=== PATIENT | female | born 1950 | race Caucasian/White ===

== ENCOUNTER 2018-03-29 04:16 | Inpatient (IN) | payer OTHER ==
[~2018-03-29] VITALS: Ht 162.6 cm; Wt 51.3 kg
--- NOTE | 2018-03-29 04:24 | NUR ---
PT AMBULATORY TO ER BED 4. BIBSELF FROM HOME C/O N/V X 1 DAY. NOTED LACERATION TO BACK OF HEAD. PT STATES SHE HIT HER HEAD ON THE WALL WHILE VOMITING. PT PLACED ON PRESENTATION DESIGNER. VSS/RESP EVEN UNLABORED/NAD NOTED/SKIN WARM AND DRY/AFEBRILE/AOX4. AWAITNG MD JARQUIN.
--- NOTE | 2018-03-29 04:30 | NUR ---
EMT AT BEDSIDE TO CLEAN LACERATION TO BACK OF HEAD.
[2018-03-29] MEDS ORDERED: TDAP [DIPH/PERTUSSIS/TET] 0.5 ML VIAL IM ONE ×2 (04:40→05:00)
[2018-03-29] MEDS ORDERED: ONDANSETRON HCL/PF 4 MG/2 ML VIAL ONE (04:40)
[2018-03-29] MEDS ORDERED: LIDOCAINE 0.5% HCL 50 ML VIAL ONE (04:40)
--- NOTE | 2018-03-29 04:45 | NUR ---
20G IV TO L FA X 1 ATTEMPT USING ASEPTIC TECH, BLOOD HANDED OVER TO THE LAB AT BEDSIDE. IV FLUSHES EASILY WITH NS, NO S/S INFILTRATION NOTED AT THIS TIME.
--- NOTE | 2018-03-29 04:49 | NUR ---
EMT AT BEDSIDE FOR EKG.
--- NOTE | 2018-03-29 04:51 | NUR ---
XRAY AT BEDSIDE.
--- NOTE | 2018-03-29 04:55 | NUR ---
SUTURE SETUP AT BEDSIDE PER MD ORDERS.
[2018-03-29 04:57] LABS: BASOPHILS % (AUTO) 0.2 % (0.0-2.0); EOSINOPHILS % (AUTO) 1.4 % (0.0-6.0); HEMATOCRIT 42 % (33-45); HEMOGLOBIN 14.1 g/dL (11.5-14.8); LYMPHOCYTES % (AUTO) 25.9 % (20.0-44.0); MEAN CORPUSCULAR HEMOGLOBIN 34 PG (26.0-33.0); MEAN CORPUSCULAR HGB CONC 34 g/dl (31.0-36.0); MEAN CORPUSCULAR VOLUME 99 fL (82-100); MONOCYTES # (AUTO) 0.3 /CMM (0.1-1.30); NEUTROPHILS # (AUTO) 2.5 /CMM (1.8-8.9); NEUTROPHILS % (AUTO) 65.5 % (43.0-81.0); PLATELET COUNT (AUTO) 179 /CMM (150-450); RDW COEFFICIENT OF VARIATION 12.8 (11.5-15.0); WHITE BLOOD COUNT (AUTO) 3.9 K/uL (4.3-11.0)
--- NOTE | 2018-03-29 04:59 | NUR ---
PT TO CT VIA STRETCHER. VSS.
[2018-03-29] MEDS ORDERED: IV NS 0.9% 1,000 ML BAG IV ONE (05:00)
[2018-03-29] MEDS ORDERED: LIDOCAINE HCL/PF 1% 30 ML VIAL TP ONE (05:00)
[2018-03-29] MEDS ORDERED: ONDANSETRON HCL/PF 4 MG/2 ML VIAL IVP ONE (05:00)
[2018-03-29 05:08] LABS: CALCIUM, SERUM 8.3 mg/dL (8.5-10.1); CARBON DIOXIDE 27 mmol/L (21-32); CHLORIDE 103 mmol/L (98-107); CREATININE 0.6 mg/dL (0.6-1.3); GLUCOSE 154 mg/dL (74-106); POTASSIUM 3.3 mmol/L (3.5-5.1); SODIUM SERUM 141 mmol/L (136-145); UREA NITROGEN, BLOOD 8 mg/dL (7-18)
[2018-03-29 05:11] LABS: INR 0.96 (0.87-1.13)
--- NOTE | 2018-03-29 05:11 | NUR ---
PT BACK FROM CT.
[2018-03-29 05:16] LABS: TROPONIN I < 0.017 ng/mL (0.00-0.056)
[2018-03-29] MEDS ORDERED: PRAV10TA40 PO ×2 (05:25)
[2018-03-29] MEDS ORDERED: ASPIRIN 81 MG TAB.CHEW ONE (05:27)
[2018-03-29] MEDS ORDERED: ASPIRIN 325 MG TABLET PO ONE (05:30)
--- NOTE | 2018-03-29 05:31 | NUR ---
CALLED NURSE SAHILP FOR TELE BED
--- NOTE | 2018-03-29 05:40 | NUR ---
REPORT GIVEN TO JENY COLMENARES FOR SHANA.
--- NOTE | 2018-03-29 05:51 | NUR ---
Jones castaneda in ED - 03/29/18 at 0615 by SANDY PT TRANSPORTED TO [place] [address].2 VIA STRETCHER ON BUSINESS SERVICES DIRECTOR WITH RN PER ACLS PROTOCOL.
[2018-03-29] MEDS ORDERED: DILTIAZEM HCL 25 MG IV ONE (05:54)
--- NOTE | 2018-03-29 05:55 | NUR ---
PER ADALI CONCEPCION, ADMIT TO [facility] STATUS. NEW ROOM 117-1
[2018-03-29] MEDS ORDERED: DILTIAZEM HCL 25 MG IV IV ONE (06:00)
--- NOTE | 2018-03-29 06:00 | NUR ---
REPORT GIVEN TO JENY VICTOR IN [facility] FOR [facility].
--- NOTE | 2018-03-29 06:14 | NUR ---
PT TRANSPORTED TO [facility] 117.1 VIA STRETCHER ON ASSISTANT WOMEN'S TENNIS COACH WITH RN PER ACLS PROTOCOL.
[2018-03-29 06:22] VITALS: BP 116/69
[2018-03-29] MEDS ORDERED: POTASSIUM CHLORIDE 10 MEQ TABLET.SA PO ONE (06:30)
[2018-03-29] MEDS ORDERED: Z GUARD REMEDY 2 OZ OINT TP PRN (06:30)
[2018-03-29] MEDS ORDERED: ZOLPIDEM TARTRATE 5 MG TABLET PO PRN (06:30)
[2018-03-29] MEDS ORDERED: INSULIN REGULAR, HUMAN 100 UNIT/ML 3 ML VIAL SQ PRN (06:30)
[2018-03-29] MEDS ORDERED: ONDANSETRON HCL/PF 4 MG/2 ML VIAL IVP PRN (06:30)
[2018-03-29] MEDS ORDERED: DEXTROSE 50%-WATER 50 ML DISP.SYRIN IV PRN (06:30)
[2018-03-29] MEDS ORDERED: MAG HYDROX/AL HYDROX/SIMETH 30 ML UDC PO PRN (06:30)
[2018-03-29] MEDS ORDERED: HYDROCODONE/APAP 5/325MG 1 EACH TABLET PO PRN (06:30)
[2018-03-29] MEDS: IV NS 0.9% 1,000 ML IV PRN ×2 (06:52→18:37)
--- NOTE | 2018-03-29 07:10 | NUR ---
[facility] RN NOTES RECEIVED PATIENT AOX4 , NOT IN ACUTE DISTRESS , DENIES SOB AND DISCOMFORT AT THIS TIME , SPO2 OF 100% VIA RA , AFIB 135 ON BEDSIDE MONITOR , IV OF LFA # 20 PATENT AND INTACT WITH NS @ 60ML/HR INFUSING WELL , ALL NEEDS ATTENDED , BED ON LOW AND LOCKED POSITION , SIDE RAILS X2 ,CALL LIGHT WITHIN REACH , HOB@ 35 , WILL CONTINUE TO MONITOR,
[2018-03-29] MEDS ORDERED: PRAV40TA3 PO (07:12)
--- NOTE | 2018-03-29 07:22 | NUR ---
RN NOTES 06:10AM - ADMITTED A PT FROM ER DUE TO A- FIB . AOX 4 WITH LACERATION ON THE BACK OF THE HEAD WITH 3 ADDY. ( DONE AT E.R) DUE TO PASSING OUT AT THE BATHROOM AND HIT THE EDGE OF THE DOOR PER PT. PLACED ON TELE MONITOR REVEALED A- FIB HR 140'S. DENIES ANY CHEST PAIN., IV SITE ON LFA G 20 INTACT AND PATENT. VS TAKEN TEMP 97.4 RATE 20 PULSE 86 BP 116/69 MMHG. PHOTO TAKEN ON SKIN ISSUE. NS @ 60 ML/HR STARTED K-DUR GIVEN ORDERED TOLERATED WELL. CALL LIGHT GIVEN WITH INSTRUCTION PROVIDED. PT BAG WITH WALLET, CARDS AND MONEY AND CHECKS KEPT BY PATIENT AT THE BEDSIDE. PER PT SHE WILL GIVE IT TO HER SISTER WHEN SHE COMES. PT IS WORRIED ABOUT HER INSURANCE IF HER INSURANCE WILL COVERED HER STAY AND HER TREATMENT HERE AT [facility], ENDORSED TO NEXT SHIFT FOR CONTINUITY OF CARE TO AM NURSE.
[2018-03-29 08:00] VITALS: BP_SYST 100; BP_SYST 104; BP_SYST 95; BP_DIAS 51; BP_DIAS 63; BP_DIAS 66
[2018-03-29] MEDS: BLOOD SUGAR DIAGNOSTIC 1 EACH STRIP IN SCH ×2 (08:00→11:41)
[2018-03-29] MEDS ORDERED: IBAN150T PO (08:29)
[2018-03-29] MEDS ORDERED: FINA5TAB11 PO (08:29)
--- NOTE | 2018-03-29 09:45 | NUR ---
[facility] RN NOTES SEEN AND EVALUATED BY DR HOSKINS , DISCUSSED HR OF AFIB 130-140 , SYNCOPAL EPISODE PRIOR TO ADMISSION , ORTHOSTATICS DONE , AWAITING FOR ORDERS
[2018-03-29] MEDS ORDERED: AMIODARONE 150 MG in IV D5W 100 ML IV ONE (10:11)
[2018-03-29] MEDS ORDERED: AMIODARONE 900 MG in IV D5W 500 ML IV PRN (10:15)
--- NOTE | 2018-03-29 10:16 | NUR ---
[facility] RN NOTES RT AT BEDSIDE FOR EKG
[2018-03-29 10:19] LABS: MAGNESIUM 1.9 mg/dL (1.8-2.4); PHOSPHORUS 3.1 mg/dL (2.5-4.9)
--- NOTE | 2018-03-29 10:25 | NUR ---
[facility] RN NOTES EKG RESULT RELAYED TO DR HOSKINS . AWARE
[2018-03-29 10:29] LABS: THYROID STIMULATING HORMONE 5.289 uIU/mL (0.358-3.74)
[2018-03-29] MEDS ORDERED: RIVAROXABAN 10 MG TABLET PO SCH (11:00)
--- NOTE | 2018-03-29 11:30 | NUR ---
CONFIRMED WITH DR HOSKINS DO NOT GIVE XARELTO AT 1100 ONLY 1700 DAILY
--- NOTE | 2018-03-29 11:52 | NUR ---
D/C ACCUCHECKS AND CCHO DIET. OK ORDER CARDIAC DIET PER DANIEL. PENDING AMIO FROM PHARMACY.
[2018-03-29 12:00] VITALS: BP 108/66
--- NOTE | 2018-03-29 12:00 | NUR ---
MAP AND CHART MOUNTER SANCHEZ AT BEDSIDE.
--- NOTE | 2018-03-29 12:32 | NUR ---
NOTIFIED DR HOSKINS PATIENT CONVERTED TO NSR 80 AFTER AMIO BOLUS. PER MD D/C MAINTENANCE AMIO ORDER AND CONTINUE WITH XARELTO ORDER
[2018-03-29 16:00] VITALS: BP 131/74
--- NOTE | 2018-03-29 16:30 | NUR ---
[facility] RN NOTES RECEIVED REPORT FROM DEYSI , PATIENT AOX4 , NOT IN ACUTE DISTRESS , DENIES SOB AND DISCOMFORT AT THIS TIME , SPO2 OF 100% VIA RA , SR 82 ON BEDSIDE MONITOR , IV OF LFA # 20 PATENT AND INTACT WITH NS @ 60ML/HR INFUSING WELL , ALL NEEDS ATTENDED , BED ON LOW AND LOCKED POSITION , SIDE RAILS X2 ,CALL LIGHT WITHIN REACH , HOB@ 35 , WILL CONTINUE TO MONITOR
[2018-03-29] MEDS: RIVAROXABAN 10 MG TABLET PO SCH (16:37)
--- NOTE | 2018-03-29 17:05 | NUR ---
[facility] RN NOTES PT IS CONCERNED WITH HER INSURANCE , KINDRA TECHNICIAN ASSISTANT NOTIFIED ,
--- NOTE | 2018-03-29 17:30 | NUR ---
[facility] RN NOTES TYLENOL PRN GIVEN PT COMPLAINS OF PAIN @ THE LACERATION SITE (BACK OF HER HEAD ) 12/31 , STINGING IN CHARACTERISTICS , WILL RE ASSESS PRN MED EFFECTIVENESS
[2018-03-29] MEDS: ACETAMINOPHEN 325 MG TABLET PO PRN ×2 (17:31→23:53)
--- NOTE | 2018-03-29 19:55 | NUR ---
TD RN NOTES RECEIVED PT ON BED, A/OX4. ON ROOM AIR SATURATING WELL NO RESPIRATORY DISTRESS NOTED AT THIS TIME. IV ACCESS ON LFA #20 NS @60CC/HR RUNNING WELL, NO SIGN NO OF INFILTRATION. IV ACCESS PATENT AND INTACT. HEAD OF BED ELEVATED. SIDE RAILS UP. CALL LIGHT WITHIN REACH. BED ALARM ON. SIDE RAILS UP X3. HEAD OF BED ELEVATED. WILL CONTINUE TO MONITOR PT CLOSELY.
[2018-03-29 20:00] VITALS: BP 104/55
--- NOTE | 2018-03-29 22:21 | NUR ---
2221 TAKEN TO MRI VIA WHEELCHAIR ON ACLS PROTOCOL, PT. AAOX4, ACCOMPANIED BY JENY TURNER AND OSIEL BONILLA, AND PYRIDINE OPERATOR. Addendum: 03/29/18 at 2225 by CAROL KELLOGG RN ERROR IN TOOL AND EQUIPMENT RENTAL CLERK. PLEASE DISREGARD
[2018-03-30] VITALS: BP 122/56
--- NOTE | 2018-03-30 04:49 | NUR ---
MAIL LIST LIBRARIAN NOTES PATIENT REFUSED V/S AT 0400. PER PT SHE WANTS TO SLEEP.
[2018-03-30 06:24] LABS: BASOPHILS % (AUTO) 0.3 % (0.0-2.0); EOSINOPHILS % (AUTO) 1.9 % (0.0-6.0); HEMATOCRIT 36 % (33-45); HEMOGLOBIN 12.3 g/dL (11.5-14.8); LYMPHOCYTES # (AUTO) 1.9 /CMM (0.8-4.8); LYMPHOCYTES % (AUTO) 36.8 % (20.0-44.0); MEAN CORPUSCULAR HEMOGLOBIN 34 PG (26.0-33.0); MEAN CORPUSCULAR HGB CONC 34 g/dl (31.0-36.0); MEAN CORPUSCULAR VOLUME 100 fL (82-100); MONOCYTES # (AUTO) 0.4 /CMM (0.1-1.30); NEUTROPHILS # (AUTO) 2.7 /CMM (1.8-8.9); PLATELET COUNT (AUTO) 157 /CMM (150-450); RDW COEFFICIENT OF VARIATION 12.7 (11.5-15.0); RED BLOOD CELL COUNT(AUTO) 3.64 MIL/uL (4.0-5.2); WHITE BLOOD COUNT (AUTO) 5.1 K/uL (4.3-11.0)
[2018-03-30 06:44] LABS: TROPONIN I < 0.017 ng/mL (0.00-0.056)
[2018-03-30 06:45] LABS: ALANINE AMINOTRANSFERASE 15 U/L (12-78); ALKALINE PHOSPHATASE 52 U/L (46-116); ASPARTATE AMINOTRANSFERASE 19 U/L (15-37); BILIRUBIN,TOTAL 0.4 mg/dL (0.2-1.0); CALCIUM, SERUM 7.9 mg/dL (8.5-10.1); CARBON DIOXIDE 26 mmol/L (21-32); CHLORIDE 107 mmol/L (98-107); CREATININE 0.6 mg/dL (0.6-1.3); GLUCOSE 104 mg/dL (74-106); MAGNESIUM 1.9 mg/dL (1.8-2.4); PHOSPHORUS 3.2 mg/dL (2.5-4.9); POTASSIUM 3.9 mmol/L (3.5-5.1); SODIUM SERUM 141 mmol/L (136-145); TOTAL PROTEIN, SERUM 6.2 g/dL (6.4-8.2); UREA NITROGEN, BLOOD 6 mg/dL (7-18)
--- NOTE | 2018-03-30 07:17 | NUR ---
KNOCKOUT WORKER NOTES NO ACUTE CHANGES NOTED DURING THE SHIFT. PROVIDED COMFORT AND SAFETY. DUE MEDS GIVEN. HEAD OF BED ELEVATED. SIDE RAILS UP. CALL LIGHT WITHIN REACH. ENDORSED TO THE AM NURSE FOR CONTINUITY OF CARE.
--- NOTE | 2018-03-30 07:30 | NUR ---
INITIAL NOTES: RECEIVED PT ON BED, A/OX4. ON ROOM AIR SATURATING WELL NO RESPIRATORY DISTRESS NOTED AT THIS TIME. IV ACCESS ON LFA #20 NS @60CC/HR RUNNING WELL, NO SIGN NO OF INFILTRATION. IV ACCESS PATENT AND INTACT. HEAD OF BED ELEVATED. SIDE RAILS UP. CALL LIGHT WITHIN REACH. BED ALARM ON. SIDE RAILS UP X3. HEAD OF BED ELEVATED. WILL CONTINUE TO MONITOR PT CLOSELY.
[2018-03-30 08:00] VITALS: BP 102/43
[2018-03-30 08:30] LABS: CHOLESTEROL 190 mg/dL (<200); HDL CHOLESTEROL 88 mg/dL (40-60); LDL 90 mg/dL (0-99); TRIGLYCERIDES 80 mg/dL (30-150)
[2018-03-30] MEDS ORDERED: RIVA10TA PO (11:50)
[2018-03-30 12:00] VITALS: BP_SYST 112; BP_SYST 130; BP_DIAS 52; BP_DIAS 60
[2018-03-30] MEDS: RIVAROXABAN 10 MG TABLET PO SCH (12:55)
== END 2018-03-30 13:14 | disposition home or self-care (01) | DRG 312 ==
LOC: ER 04:20 → TELE 05:45 → TELE-TD 05:59 → TELE1 22:18 → MEDSG1 03-30 11:18
PROVIDERS: ADMIT Nurse Practitioner Acute Care; ATTEND Nurse Practitioner Acute Care
DX: R55 Syncope and collapse (principal); I48.91 Unspecified atrial fibrillation; E87.6 Hypokalemia; Z79.899 Other long term (current) drug therapy; E78.5 Hyperlipidemia, unspecified; E03.9 Hypothyroidism, unspecified; S01.01XA Laceration without foreign body of scalp, initial encounter; W01.198A Fall on same level from slipping, tripping and stumbling with subsequent striking against other object, initial encounter; Y92.009 Unspecified place in unspecified non-institutional (private) residence as the place of occurrence of the external cause
CPT/HCPCS: 36415; 70450-TC; 71045-TC; 80048-TC; 80053-TC; 80061-TC; 82306; 82962-TC; 83735-TC; 84100-TC; 84439-TC; 84443-TC; 84484-TC; 85025-TC; 85730-TC; 87081-TC; 90715; 93307-TC; A4606; A6402; J0282; J1815; J2405; J3490; J7030; J7060; Z7610